=== PATIENT | male | born 1985 | race Caucasian/White ===

== ENCOUNTER 2017-02-24 21:58 | Emergency (ER) | payer OTHER ==
--- NOTE | ~2017-02-24 | CT71 ---
[facility] A Service of [facility] RADIOLOGY TEXT RESULTS PATIENT: ABHI OLIVEROS LOCATION: [facility] : 89 UNIT #: [id number] AGE: [address]: Cammy Jones MD SEX: M ORDER DR: [id number] [facility] [address] [place], [place] [address] [id number] E MR#: [id number] Acc #: [id number] NAME: ABHI OLIVEROS : 1985 SEX: M STUDY DATE/TIME: UNIT: [facility] ROOM: STUDY DESCRIPTION: CT Head Wo Contrast Attending Physician: Cammy Jones M.D. Ordering Physician: Cammy Jones M.D. Primary Care Physician: No Primary Care Physician MEDICAL IMAGING REPORT This report is preliminary unless electronic signature is present EXAM Head CT 02/24/2017 at 2340 INDICATION Seizure at home today. Headaches. COMPARISON 04/23/2009 TECHNIQUE Axial images were obtained from the base to the vertex without contrast. This CT exam was performed with one or more of the following radiation dose reduction techniques: Automatic exposure control, adjustment of mA and/or kV according to patient size, and iterative reconstruction. FINDINGS Ventricular size and configuration are stable. There is relative encephalomalacia in the occipital lobes, left greater than right. This is unchanged. 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 Please correlate with history and outside imaging. No acute infarct or hemorrhage is seen. There are no masses. No skull fractures are seen. IMPRESSION No acute findings. Stable exam from 2008. There are chronic changes in the occipital lobes. 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 Correlate with history of any prior outside neuro imaging. Dictated by... Jorge Armijo Jr., M.D. THIS IS AN ELECTRONICALLY VERIFIED REPORT [facility] A Service of [facility] RADIOLOGY TEXT RESULTS PATIENT: ABHI OLIVEROS LOCATION: [facility] : 89 UNIT #: [id number] AGE: [address]: Cammy Jones MD SEX: M ORDER DR: Jorge Armijo Jr., M.D. at 02/26/2017 9:10 PM ELIANA/steve TD: 02/26/2017 08:44 JOB #: [id number] MEDICAL IMAGING REPORT Page 1 of 1 COPY
[2017-02-24 23:09] LABS: BASOPHIL% 0.5 % (0-2.5); DIFF IND NO; EOSINOPHIL# 0.1 X10e3 (0-0.7); EOSINOPHIL% 2.1 % (0.0-7.0); HEMATOCRIT 43.9 % (38.0-50.0); HEMOGLOBIN 14.9 gm/dL (13.0-16.0); LYMPHOCYTE# 1.9 X10e3 (1.0-3.5); LYMPHOCYTE% 28.4 % (17.0-45.0); MEAN CELL VOLUME 88.8 FL (83-96); MEAN CORPUSCULAR HEMOGLOBIN 30.2 PG (28-34); MEAN CORPUSCULAR HGB CONC 33.9 g/dL (30-36); MEAN PLATELET VOLUME 8.8 FL (6.5-11.5); MONOCYTE# 0.6 X10e3 (0-1.0); MONOCYTE% 8.6 % (3.0-12.0); NEUTROPHIL# 3.9 X10e3 (1.5-7.1); NEUTROPHIL% 60.4 % (40-75); PLATELET COUNT 227 X10e3 (140-420); RED BLOOD COUNT 4.95 X10e (3.90-5.60); RED CELL DISTRIBUTION WIDTH 13.7 % (11.0-15.5); WHITE BLOOD COUNT 6.5 X10e3 (4.0-10.5)
[2017-02-24 23:11] LABS: AMPHETAMINE NEG (NEG); BARBITURATES NEG (NEG); BENZODIAZEPINES NEG (NEG); COCAINE NEG (NEG); MARIJUANA NEG (NEG); OPIATES NEG (NEG); TRICYCLIC ANTIDEPRESSANTS NEG (NEG); U METHADONE NEG (NEG)
[2017-02-24 23:22] LABS: BUN/CREATININE RATIO 8.46; CALCIUM SERUM 9.1 mg/dL (8.4-10.2); CREATININE SERUM 1.3 mg/dL (0.6-1.4); GLOM FILT RATE Estimated 73.8 mL/min (>60); POTASSIUM 3.7 mmol/L (3.5-5.1)
== END 2017-02-25 00:40 | disposition home or self-care (01) ==
LOC: CED 21:58
PROVIDERS: Emergency Medicine
DX: G40.909 Epilepsy, unspecified, not intractable, without status epilepticus (principal); Z88.8 Allergy status to other drugs, medicaments and biological substances
CPT/HCPCS: 36415; 70450; 80048; 80307; 82947; 85025; 99284